=== PATIENT | female | born 1990 | race African-American/Black ===

== ENCOUNTER 2019-07-04 09:34 | Inpatient (IN) | payer SELFPAY ==
[2019-07-04] MEDS ORDERED: Acetaminophen 500 MG TAB ONE (09:50)
[2019-07-04 10:16] LABS: Bilirubin Negative (Negative); Blood, Urine Negative (Negative); Clarity Clear (Clear); Glucose, Urine (Dipstick) Normal (Negative); Leukocyte 250 Leu/uL (Negative); Nitrite Negative (Negative); Protein, Urine (Dipstick) 30 mg/dL (Neg-Trace); Squamous Epithelial 0-3 HPF (0-3); Urobilinogen 12 mg/dL (Less than 2); WBC/HPF 21-50 HPF (0-3)
[2019-07-04 10:17] LABS: Pregnancy Test - Urine (BHCG) Negative (Negative); Pregu Control Background? CLEAR/WHITE (CLR/WHITE); Pregu Control Bar Appear? YES (CONTROL BAR); Specific Gravity 1.012 (1.002-1.036)
[2019-07-04 10:18] LABS: Hemoglobin 7.1 g/dL (12.0-16.0); Mean Corpuscular HGB CONC 30.5 g/dL (32.0-36.0); Mean Corpuscular Hemoglobin 22.9 pg (27.0-31.0); Platelet Count 444 thou/uL (130-400); RBC Distribution Width 22.4 % (11.5-14.5); Red Blood Cell (RBC) Count 3.12 mill/uL (4.20-5.40); White Blood Cell (WBC) Count 27.1 thou/uL (4.8-10.8)
[2019-07-04 10:25] LABS: Bacteria/HPF 2+ HPF (None Seen)
[2019-07-04 10:48] LABS: Band 15 % (5-11); Hypochromia MODERATE=16-30 cells (100X) (0-5/hpf); Lymphocytes 10 % (21-51); MDiff Complete? YES; Microcytosis SLIGHT = 6-15 cells (100X) (0-5/hpf); Monocytes 6 % (0-10); Neutrophil 69 % (42-75); Nucleated RBC 1 % (0); Platelet Morphology Comment Appears Increased; Polychromasia SLIGHT = 2-3 cells (100X) (0-2/hpf); Reflex for Review?? YES; Schistocytes SLIGHT = 2-5 cells (100X) (0-1/hpf); Target Cells MODERATE= 6-15 cells (100X) (0-1/hpf); Toxic Granulation SLIGHT
[2019-07-04 10:49] LABS: ALT (SGPT) 43 U/L (8-55); AST (SGOT) 35 U/L (5-34); Alkaline Phosphatase 105 U/L (40-110); Anion Gap 18 mmol/L (10-20); BUN (Urea Nitrogen) 6 mg/dL (7.0-18.7); Bilirubin, Total 1.6 mg/dL (0.2-1.2); Calc. Creatinine Clearance 0 mL/min (70-130); Calcium 7.9 mg/dL (7.8-10.44); Carbon Dioxide 24 mmol/L (22-29); Chloride 100 mmol/L (98-107); Estimated GFR-MDRD 89; Globulin 3.2 g/dL (2.4-3.5); Glucose 101 mg/dL (70-105); Potassium 3.2 mmol/L (3.5-5.1); Protein, Total 6.2 g/dL (6.0-8.3); Sodium 139 mmol/L (136-145)
[2019-07-04] MEDS ORDERED: Ondansetron PF 4 MG/2 ML Vial ONE (11:10)
[2019-07-04] MEDS ORDERED: Ibuprofen 200 MG TAB ONE (11:10)
[2019-07-04] MEDS ORDERED: cefTRIAXone\\ROCEPHIN 2 GM VIAL ONE (11:10)
--- NOTE | 2019-07-04 11:34 | RAD ---
EXAM: Chest PA and lateral: HISTORY: Vomiting generalized body aches COMPARISON: None FINDINGS: Heart size:Within normal limits. Lungs:Clear of acute process. No confluent pneumonia, overt edema, pleural effusion, or other acute process. IMPRESSION: No significant acute intrathoracic disease.
--- NOTE | 2019-07-04 11:58 | CT ---
CT of abdomen and pelvis: 07/04/2019 COMPARISON: None HISTORY: Urinary frequency, bloating, nausea and vomiting TECHNIQUE: Axial CT imaging at 5 mm intervals from the lung bases through the pubic symphysis with IV contrast. Coronal and sagittal reformatted imaging obtained. FINDINGS: The visualized lung bases are unremarkable. No free intraperitoneal air. Small volume free fluid noted within the pelvic cul-de-sac. Hepatic parenchyma is hypodense, suggesting steatosis. Gallbladder, spleen, and pancreas grossly unre markable. Bilateral adrenal glands appear within normal limits. There are numerous peripheral areas of hypoenhancement/hypodensity involving the renal cortex, right greater than left, with a superior pole predominance. While some of these areas likely represent small renal cysts, areas of hypoenhancement on the basis of bilateral pyelonephritis is suspected. There is prominence of the urinary bladder wall which may signify underdistention or inflammatory christi nge. Evaluation of the bowel is limited without oral contrast media. There is fluid density within multipl e loops of nondilated small bowel within the abdomen/pelvis. There is also fluid material within the colon in the region of the cecum and the ascending colon. The appendix is not discretely visualiz ed. No right lower quadrant inflammatory change. The vascular structures of the abdomen/pelvis appear patent with no abdominal or pelvic lymphadenopat hy seen and no acute osseous abnormality evident. IMPRESSION: Findings suspicious for bilateral pyelonephritis. Correlation with urinalysis advised. Re commend follow-up imaging following treatment to document resolution.
[2019-07-04] MEDS ORDERED: SODIUM CHLORIDE 0.9% IVPB SCH (13:30)
[2019-07-04] MEDS ORDERED: Ibuprofen 600 MG TAB PO SCH (13:30)
[2019-07-04] MEDS ORDERED: VANCOMYCIN HCL IVPB SCH (13:30)
[2019-07-04 13:57] LABS: Hemoglobin 5.7 g/dL (12.0-16.0)
[2019-07-04] MEDS ORDERED: Iopamidol-370 76% 500 ML 1 ML ONE (14:42)
[2019-07-04 16:52] LABS: Lactic Acid 2.3 mmol/L (0.5-2.2)
[2019-07-04 17:42] VITALS: BMI 22.7
[2019-07-04] MEDS ORDERED: Acetaminophen 325 MG TAB PO PRN (17:56)
[2019-07-04] MEDS ORDERED: Ondansetron ODT 4 MG TAB SL PRN (17:56)
[2019-07-04] MEDS: Sodium Chloride 0.9% 1,000 ML IV SCH (18:34)
[2019-07-04] MEDS: Ondansetron PF 4 MG/2 ML Vial IVP PRN (18:45)
--- NOTE | 2019-07-04 20:16 | PDOC.HHP ---
Hospitalist HPI - History of Present Illness Nausea and vomiting History of Present Illness: This patient is a 28-year-old female with no significant past medical history who presented to the hospital due to worsening nausea and vomiting over the past week. The patient also complained of some abdominal pain and fever at home. She denies shortness of breath, cough, palpitations, or syncope. In the ER, CT scan of the abdomen and pelvis revealed evidence of bilateral pyelonephritis. She was hypotensive and required multiple boluses of normal saline to maintain her blood pressure above 90 systolic. Her hemoglobin level was found to be 7.1 which dropped to 5 after IV hydration. The patient does endorse a history of anemia but denies any bleeding or change in the color of her stool. Fecal occult blood test in the ER was negative. Hospitalist ROS - Review of Systems All other systems reviewed; all pertinent +/- noted in HPI/Subj - Medication Medications: Active Medications Generic Name Dose Route Start Last Admin Trade Name Freq PRN Reason Stop Dose Admin Sodium Chloride 1,000 mls @ 125 mls/hr 07/04/19 17:56 07/04/19 18:34 Normal Saline 0.9% IV 07/05/19 03:41 1,000 mls .Q8H ALBER Administration Ondansetron HCl 4 mg 07/04/19 17:56 07/04/19 18:45 Zofran IVP 07/05/19 03:41 4 mg Q6H PRN Administration Nausea/Vomiting Hospitalist History - Past Medical History Other Medical History: Chronic anemia. - Past Surgical History Past Surgical History: reports: - Family History Family History: reports: no pertinent history - Social History Smoking Status: Current every day smoker Alcohol: reports: None Drugs: reports: none - Exam General Appearance: awake alert ENT: normocephalic atraumatic Neck: supple, no JVD Heart: RRR, no murmur, no gallops, no rubs Respiratory: CTAB, no wheezes, no rales, no ronchi, no tachypnea Gastrointestinal: soft, non-tender, non-distended, normal bowel sounds Extremities: no cyanosis, no clubbing Neurological: cranial nerve grossly intact, no focal deficits Hospitalist Results - Labs Result Diagrams: 07/04/19 13:46 07/04/19 10:04 Lab results: WBC 27.1 thou/uL (4.8-10.8) H 07/04/19 10:04 Hgb 5.7 g/dL (12.0-16.0) L* 07/04/19 13:46 Hct 18.5 % (36.0-47.0) L 07/04/19 13:46 MCV 75.0 fL (78.0-98.0) L 07/04/19 10:04 Plt Count 444 thou/uL (130-400) H 07/04/19 10:04 Band Neuts % (Manual) 15 % (5-11) H 07/04/19 10:04 Sodium 139 mmol/L (136-145) 07/04/19 10:04 Potassium 3.2 mmol/L (3.5-5.1) L 07/04/19 10:04 Chloride 100 mmol/L (98-107) 07/04/19 10:04 Carbon Dioxide 24 mmol/L (22-29) 07/04/19 10:04 BUN 6 mg/dL (7.0-18.7) L 07/04/19 10:04 Creatinine 0.76 mg/dL (0.6-1.1) 07/04/19 10:04 Glucose 101 mg/dL (70-105) 07/04/19 10:04 Lactic Acid 2.3 mmol/L (0.5-2.2) H 07/04/19 16:25 Calcium 7.9 mg/dL (7.8-10.44) 07/04/19 10:04 Total Bilirubin 1.6 mg/dL (0.2-1.2) H 07/04/19 10:04 AST 35 U/L (5-34) H 07/04/19 10:04 ALT 43 U/L (8-55) 07/04/19 10:04 Alkaline Phosphatase 105 U/L (40-110) 07/04/19 10:04 Serum Total Protein 6.2 g/dL (6.0-8.3) 07/04/19 10:04 Albumin 3.0 g/dL (3.5-5.0) L 07/04/19 10:04 Urine Ketones 20 mg/dL (Negative) A 07/04/19 09:55 Urine Blood Negative (Negative) 07/04/19 09:55 Urine Nitrite Negative (Negative) 07/04/19 09:55 Ur Leukocyte Esterase 250 Reginald/uL (Negative) A 07/04/19 09:55 Urine RBC 4-6 HPF (0-3) A 07/04/19 09:55 Urine WBC 21-50 HPF (0-3) A 07/04/19 09:55 Ur Squamous Epith Cells 0-3 HPF (0-3) 07/04/19 09:55 Urine Bacteria 2+ HPF (None Seen) A 07/04/19 09:55 Hospitalist H&P A/P - Problem (1) Sepsis Code(s): A41.9 - SEPSIS, UNSPECIFIED ORGANISM Status: Acute (2) Septic shock Code(s): A41.9 - SEPSIS, UNSPECIFIED ORGANISM; R65.21 - SEVERE SEPSIS WITH SEPTIC SHOCK Status: Acute (3) Pyelonephritis Code(s): N12 - TUBULO-INTERSTITIAL NEPHRITIS, NOT SPCF ACUTE OR CHRONIC Status: Acute (4) Chronic anemia Code(s): D64.9 - ANEMIA, UNSPECIFIED Status: Acute - Plan Plan: The patient presented with septic shock due to bilateral pyelonephritis. She received multiple boluses of normal saline. Her blood pressure currently stable. Start IV ceftriaxone 1 g daily. Follow urine and blood blood culture results. The patient will be transfused 2 units of packed RBCs. Check CBC in the morning. Check iron studies and reticulocyte count in the morning.
[2019-07-04] MEDS: Promethazine HCl 12.5 MG in Sodium Chloride 0.9% 50 ML IVPB PRN (21:17)
[2019-07-05] MEDS: Sodium Chloride 0.9% 1,000 ML IV SCH ×3 (01:58→19:58)
[2019-07-05] MEDS: Ondansetron PF 4 MG/2 ML Vial IVP PRN ×2 (01:58→19:56)
[2019-07-05 03:34] LABS: Reticulocyte Count 2.7 % (0.5-1.5)
[2019-07-05 03:49] LABS: Band 23 % (5-11); Burr Cells MODERATE= 6-15 cells (100X) (0-1/hpf); Hemoglobin 8.8 g/dL (12.0-16.0); Lymphocytes 12 % (21-51); MDiff Complete? YES; Mean Corpuscular Hemoglobin 26.2 pg (27.0-31.0); Mean Corpuscular Volume 81.8 fL (78.0-98.0); Mean Platelet Volume 9.4 fL (7.4-10.4); Metamyelocyte 2 % (0-0); Monocytes 9 % (0-10); Neutrophil 54 % (42-75); Platelet Count 291 thou/uL (130-400); Platelet Morphology Comment Appears Adequate; RBC Distribution Width 21.6 % (11.5-14.5); Red Blood Cell (RBC) Count 3.35 mill/uL (4.20-5.40); Target Cells MODERATE= 6-15 cells (100X) (0-1/hpf); White Blood Cell (WBC) Count 21.3 thou/uL (4.8-10.8)
[2019-07-05 03:56] LABS: Anion Gap 12 mmol/L (10-20); BUN (Urea Nitrogen) 6 mg/dL (7.0-18.7); Calc. Creatinine Clearance 103 mL/min (70-130); Calcium 6.4 mg/dL (7.8-10.44); Carbon Dioxide 19 mmol/L (22-29); Chloride 110 mmol/L (98-107); Estimated GFR-MDRD Greater than 90; Glucose 112 mg/dL (70-105); Iron 46 ug/dL (50-170); Iron Binding Capacity, Total 140 mcg/dL (265-497); Potassium 2.7 mmol/L (3.5-5.1); Sodium 138 mmol/L (136-145)
[2019-07-05] MEDS ORDERED: Potassium Chloride 40 MEQ in Sodium Chloride 0.9% 500 ML IVPB SCH (04:30)
[2019-07-05] MEDS: cefTRIAXone\\ROCEPHIN 1 GM in Sodium Chloride 0.9% 100 ML IVPB SCH (10:45)
[2019-07-05] MEDS: Acetaminophen 325 MG TAB PO PRN ×2 (10:45→21:22)
--- NOTE | 2019-07-05 11:22 | CON ---
DATE OF CONSULTATION: 07/05/2019 CONSULTING PHYSICIAN: Hospitalist Group. REASON FOR CONSULTATION: Sepsis secondary to pyelonephritis. HISTORY OF PRESENT ILLNESS: The patient is a 28-year-old from [place], who came in with fever, nausea, and vomiting. She was found to have bilateral pyelonephritis. She has been given IV fluids and antibiotics and now feels better this morning. She has no previous history of urinary tract infection or pyelonephritis. She tested flu negative. PAST MEDICAL HISTORY: Essentially negative except for anemia. PAST SURGICAL HISTORY: She has had 3 C-sections. SOCIAL HISTORY: She smokes. Does not consume alcohol. Does not use illicit drugs. FAMILY MEDICAL HISTORY: Unremarkable. REVIEW OF SYSTEMS: Otherwise, negative. PHYSICAL EXAMINATION: VITAL SIGNS: Temperature 101.4, pulse 86, respirations 29, and O2 saturation 98%. GENERAL: She is awake, alert, in no distress. HEENT: Unremarkable. NECK: No JVD. LUNGS: Clear. CARDIAC: S1 and S2. Regular. ABDOMEN: Soft and nontender. No costovertebral angle tenderness. EXTREMITIES: No clubbing, cyanosis, or edema. DIAGNOSTIC DATA: Sodium 138, potassium 2.7, chloride 110, CO2 of 19, BUN 6, creatinine 0.6, and glucose 112. White blood cell count 21, hematocrit 27.4, and platelet count 291 with 23% bands. Urinalysis showed 21 to 50 white blood cells. test was negative. Chest x-ray shows no mass, effusion, or infiltrate. ASSESSMENT: Pyelonephritis secondary to gram-negative organism. PLAN: Continue Rocephin and hydration. Antipyretic therapy as needed. Replace potassium. Job ID: [id number]
[2019-07-05] MEDS: Promethazine HCl 12.5 MG in Sodium Chloride 0.9% 50 ML IVPB PRN (21:23)
[2019-07-06 04:09] LABS: Hemoglobin 8.3 g/dL (12.0-16.0); Mean Corpuscular HGB CONC 31.7 g/dL (32.0-36.0); Mean Corpuscular Hemoglobin 26.1 pg (27.0-31.0); Mean Corpuscular Volume 82.2 fL (78.0-98.0); Mean Platelet Volume 9.2 fL (7.4-10.4); Platelet Count 302 thou/uL (130-400); RBC Distribution Width 21.9 % (11.5-14.5); Red Blood Cell (RBC) Count 3.17 mill/uL (4.20-5.40); White Blood Cell (WBC) Count 13.5 thou/uL (4.8-10.8)
[2019-07-06 04:15] LABS: Anion Gap 8 mmol/L (10-20); BUN (Urea Nitrogen) 4 mg/dL (7.0-18.7); Calc. Creatinine Clearance 115 mL/min (70-130); Calcium 6.8 mg/dL (7.8-10.44); Carbon Dioxide 20 mmol/L (22-29); Chloride 112 mmol/L (98-107); Estimated GFR-MDRD Greater than 90; Glucose 93 mg/dL (70-105); Potassium 3.1 mmol/L (3.5-5.1); Sodium 137 mmol/L (136-145)
[2019-07-06 04:40] LABS: Anisocytosis SLIGHT = 6-15 cells (100X) (0-5/hpf); Hypochromia SLIGHT = 6-15 cells (100X) (0-5/hpf); MDiff Complete? YES; Ovalocytes SLIGHT = 2-5 cells (100X) (0-1/hpf); Platelet Morphology Comment Appears Adequate; Polychromasia SLIGHT = 2-3 cells (100X) (0-2/hpf); Target Cells MODERATE= 6-15 cells (100X) (0-1/hpf); Toxic Granulation SLIGHT
[2019-07-06] MEDS: Sodium Chloride 0.9% 1,000 ML IV SCH ×2 (06:19→16:46)
[2019-07-06] MEDS: Acetaminophen 325 MG TAB PO PRN ×2 (08:10→21:00)
[2019-07-06] MEDS ORDERED: Potassium Chloride 40 MEQ in Sodium Chloride 0.9% 250 ML 250 ML IVPB SCH (08:30)
[2019-07-06] MEDS: cefTRIAXone\\ROCEPHIN 1 GM in Sodium Chloride 0.9% 100 ML IVPB SCH (11:17)
[2019-07-06] MEDS: Ibuprofen 600 MG TAB PO PRN (11:18)
--- NOTE | 2019-07-06 13:00 | PRG ---
DATE OF SERVICE: 07/06/2019 SUBJECTIVE: The patient feels much better, had no acute complaints other than puffy ankles. OBJECTIVE: VITAL SIGNS: Temperature 98.9 with a T-max of 103.3, pulse 73, blood pressure 112/66. HEENT: Unremarkable. NECK: No adenopathy or JVD. LUNGS: Clear. CARDIAC: S1, S2. Regular. ABDOMEN: Soft. EXTREMITIES: No edema. LABORATORY DATA: White blood cell count 13.5, hematocrit 26.1, and platelet count 302. Sodium 137, potassium 3.1, chloride 112, CO2 of 20, BUN 4, creatinine 0.5, glucose 93. She has E coli growing from urine culture, which is sensitive to all antibiotics. ASSESSMENT: Pyelonephritis. PLAN: The patient can be transferred to the floor. She will continue fluids and antibiotics. Antipyretic therapy as needed. I will see her as needed. Job ID: [id number]
--- NOTE | 2019-07-06 14:29 | PDOC.HOSPP ---
- Subjective Encounter Date: 07/06/19 Subjective: Doing ok. Feels some better. Able to ambulate better. Not much pain. No nausea. Eating well. Denies heavy menstrual cycles. - Objective Vital Signs & Weight: Vital Signs (12 hours) Temp Pulse Ox 07/06/19 11:15 98.9 F 07/06/19 08:00 103.3 F H 99 07/06/19 03:48 98.2 F Weight Admit Weight 105 lb Weight 105 lb Most Recent Monitor Data Heart Rate from ECG 79 NIBP 115/64 NIBP BP-Mean 81 Respiration from ECG 19 SpO2 99 I&O: 07/05/19 07/06/19 07/07/19 06:59 06:59 06:59 Intake Total 3440 2000 Output Total 0 500 Balance 3440 1500 Result Diagrams: 07/06/19 03:24 07/06/19 03:24 Hospitalist ROS - Medication Medications: Active Medications Generic Name Dose Route Start Last Admin Trade Name Freq PRN Reason Stop Dose Admin Acetaminophen 650 mg 07/05/19 10:01 07/06/19 08:10 Tylenol PO 650 mg Q6H PRN Administration Fever > 101 Ceftriaxone Sodium 1 gm/ 100 mls @ 200 mls/hr 07/05/19 11:00 07/06/19 11:17 Sodium Chloride IVPB 100 mls Q24HR ALBER Administration Promethazine HCl 12.5 mg/ 50.5 mls @ 202 mls/hr 07/04/19 20:14 07/05/19 21:23 Sodium Chloride IVPB 50.5 mls Q6H PRN Administration Nausea/Vomiting Sodium Chloride 1,000 mls @ 100 mls/hr 07/05/19 10:00 07/06/19 06:19 Normal Saline 0.9% IV 1,000 mls .Q10H ALBER Administration Ibuprofen 600 mg 07/05/19 10:01 07/06/19 11:18 Motrin PO 600 mg Q6H PRN Administration Fever > 101 Ondansetron HCl 4 mg 07/05/19 10:01 07/05/19 19:56 Zofran IVP 4 mg Q6H PRN Administration Nausea/Vomiting Sodium Chloride 10 ml 07/05/19 21:00 07/06/19 08:10 Flush - Normal Saline IVF 10 ml Q12HR ALBER Administration - Exam General Appearance: NAD, awake alert Neck: supple, symmetric, no JVD, no thyromegaly, no lymphadenopathy, no carotid bruit Heart: RRR, no murmur, no gallops, no rubs, normal peripheral pulses Respiratory: CTAB, no wheezes, no rales, no ronchi, normal chest expansion, no tachypnea, normal percussion Gastrointestinal: soft, non-tender, non-distended, normal bowel sounds, no palpable masses, no hepatomegaly, no splenomegaly, no bruit Gastrointestinal - other findings: No CVAT. Extremities: no cyanosis, no clubbing, no edema Skin: normal turgor Musculoskeletal: normal tone Hosp A/P (1) Septic shock Code(s): A41.9 - SEPSIS, UNSPECIFIED ORGANISM; R65.21 - SEVERE SEPSIS WITH SEPTIC SHOCK Status: Acute (2) Chronic anemia Code(s): D64.9 - ANEMIA, UNSPECIFIED Status: Acute (3) Pyelonephritis Code(s): N12 - TUBULO-INTERSTITIAL NEPHRITIS, NOT SPCF ACUTE OR CHRONIC Status: Acute (4) Sepsis Code(s): A41.9 - SEPSIS, UNSPECIFIED ORGANISM Status: Acute - Plan Transfer to medical. Continue IV Rocephin for E. coli pyelo. Have good po options once the fever curve improves. Continue IVF. Initiate oral iron supplementation. Has good diet.
[2019-07-06] MEDS: Ferrous Sulfate 325 MG TAB PO SCH (17:40)
[2019-07-06] MEDS: Ondansetron PF 4 MG/2 ML Vial IVP PRN (21:08)
[2019-07-07] MEDS: Ibuprofen 600 MG TAB PO PRN (00:43)
[2019-07-07] MEDS: Sodium Chloride 0.9% 1,000 ML IV SCH ×2 (00:44→13:11)
[2019-07-07] MEDS: Acetaminophen 325 MG TAB PO PRN (04:09)
[2019-07-07 06:02] LABS: Band 5 % (5-11); Crenated RBC SLIGHT = 1-5 cells (100X) (None Seen); Eosinophils 2 % (0-10); Hemoglobin 8.4 g/dL (12.0-16.0); Hypochromia MODERATE=16-30 cells (100X) (0-5/hpf); Lymphocytes 14 % (21-51); MDiff Complete? YES; Mean Corpuscular HGB CONC 31.8 g/dL (32.0-36.0); Mean Corpuscular Hemoglobin 26.6 pg (27.0-31.0); Mean Corpuscular Volume 83.8 fL (78.0-98.0); Monocytes 12 % (0-10); Neutrophil 67 % (42-75); Platelet Count 359 thou/uL (130-400); Platelet Morphology Comment Appears Adequate; Red Blood Cell (RBC) Count 3.15 mill/uL (4.20-5.40); Target Cells MODERATE= 6-15 cells (100X) (0-1/hpf); White Blood Cell (WBC) Count 10.9 thou/uL (4.8-10.8)
[2019-07-07 06:04] LABS: ALT (SGPT) 33 U/L (8-55); AST (SGOT) 45 U/L (5-34); Alkaline Phosphatase 77 U/L (40-110); Anion Gap 10 mmol/L (10-20); BUN (Urea Nitrogen) 5 mg/dL (7.0-18.7); Bilirubin, Total 0.6 mg/dL (0.2-1.2); Calc. Creatinine Clearance 117 mL/min (70-130); Calcium 7.2 mg/dL (7.8-10.44); Carbon Dioxide 20 mmol/L (22-29); Chloride 113 mmol/L (98-107); Estimated GFR-MDRD Greater than 90; Globulin 2.6 g/dL (2.4-3.5); Glucose 86 mg/dL (70-105); Potassium 3.4 mmol/L (3.5-5.1); Protein, Total 4.6 g/dL (6.0-8.3); Sodium 140 mmol/L (136-145)
[2019-07-07] MEDS: Ferrous Sulfate 325 MG TAB PO SCH (08:16)
[2019-07-07] MEDS: cefTRIAXone\\ROCEPHIN 1 GM in Sodium Chloride 0.9% 100 ML IVPB SCH (10:52)
[2019-07-07 11:27] VITALS: BP 110/70; TEMP 98.2
== END 2019-07-07 14:22 | disposition home or self-care (01) | DRG 871 ==
LOC: ERS 09:34 → IMCU/EMU 15:48 → T4-A 07-06 14:46
PROVIDERS: ADMIT Internal Medicine; ATTEND Internal Medicine
PROC: 30233N1 Transfusion of Nonautologous Red Blood Cells into Peripheral Vein, Percutaneous Approach (ICD-10-PCS; principal; 2019-07-04)
DX: A41.50 Gram-negative sepsis, unspecified (principal); R65.21 Severe sepsis with septic shock; N10 Acute pyelonephritis; F17.210 Nicotine dependence, cigarettes, uncomplicated; D64.9 Anemia, unspecified; B96.89 Other specified bacterial agents as the cause of diseases classified elsewhere; B96.20 Unspecified Escherichia coli [E. coli] as the cause of diseases classified elsewhere
CPT/HCPCS: 36415; 36430; 71046; 74177; 80048; 80053; 81003; 81015; 81025; 82274; 82728; 83540; 83550; 83605; 85007; 85025; 85027; 85046; 85060; 86850; 86900; 86901; 87040; 87077; 87086; 87186; 87804; 93005; 96361; 96365; 96367; 96375; J0696; J2405; J2550; J3370; J3480; J3490; J7050; P9016; Q9967